=== PATIENT | female | born 1995 | race Caucasian/White ===

== ENCOUNTER 2016-08-27 20:10 | Emergency (ER) | payer OTHER | END 2016-08-27 21:59 | disposition home or self-care (01) | LOC: ER 20:10 | DX: O23.11 Infections of bladder in pregnancy, first trimester (principal); K21.9 Gastro-esophageal reflux disease without esophagitis; F17.210 Nicotine dependence, cigarettes, uncomplicated; Z79.899 Other long term (current) drug therapy; Z3A.10 10 weeks gestation of pregnancy | CPT/HCPCS: 36415 ==